=== PATIENT | male | born 1995 | race Asian ===

== ENCOUNTER 2019-10-18 12:35 | Emergency (ER) | payer SELFPAY ==
[~2019-10-18] VITALS: Ht 182.9 cm; Wt 68.0 kg
[2019-10-18 13:01] VITALS: Ht 182.9 cm; Wt 68.0 kg
[2019-10-18 13:29] VITALS: BP 113/69
== END 2019-10-18 13:29 | disposition home or self-care (01) ==
LOC: ED 12:35
DX: S81.831A Puncture wound without foreign body, right lower leg, initial encounter (principal); W54.0XXA Bitten by dog, initial encounter; Y93.89 Activity, other specified; Y92.89 Other specified places as the place of occurrence of the external cause; Y99.8 Other external cause status